=== PATIENT | male | born 1975 | race Caucasian/White ===

== ENCOUNTER 2024-06-30 15:36 | Emergency (ER) | payer OTHER, SELFPAY ==
[2024-06-30 15:45] VITALS: BP 131/89
--- NOTE | 2024-06-30 15:46 | ED.MUSCINJ ---
HPI-Injury
<Gregory Horvath PA-C - Last Filed: 06/30/24 15:47>
General
Chief Complaint: Musculo-Skeletal Complaint
Time Seen by Provider: 06/30/24 19:14
<Cain Murillo PA-C - Last Filed: 07/01/24 03:17>
History of Present Illness-Injury
Initial Injury comments:
48-year-old male presents to the emergency department for evaluation of an injury to the nose, was playing field hockey with his daughter when he was struck in the face by a ball. Arrives with bruising and swelling associated with a minor
laceration to the bridge of the nose. Denies loss of conscious. No current epistaxis.
ED Provider Triage
<Gregory Horvath PA-C - Last Filed: 06/30/24 15:47>
-
Patient seen by provider in Triage?: Seen in Triage
48-year-old male training field hockey with his daughter got hit in the nose with a field hockey ball. He notes swelling and subtle deformity as well as laceration to the bridge of the nose. No headache or loss of consciousness. No prior nasal
injury.
X-rays of nasal bones pending. He has a small laceration to the bridge of the nose
Patient seen by medical provider through triage and may warrant further evaluation
Review of Systems
<Cain Murillo PA-C - Last Filed: 07/01/24 03:17>
Review of Systems
Allergies reviewed?: Yes
All Other Systems: ROS reviewed and negative except as documented in HPI and ROS
Phy Exam
<Cain Murillo PA-C - Last Filed: 07/01/24 03:17>
Physical Exam
Physical Exam:
GEN: Well appearing, NAD, WDWN
HEENT: Oral mucosa moist, no scleral icterus. Moderate bilateral ecchymosis and swelling to the nasal bridge with a subcentimeter curvilinear laceration, partial-thickness
Cardiac: Regular rate
Lung: No respiratory distress, no tachypnea
MSK: No gross deformity or injuries
Skin: Good color, no pallor or jaundice, no rashes
Neuro: AO x3, moves all extremities freely
Psych: Calm, cooperative
Injury Course
<Gregory Horvath PA-C - Last Filed: 06/30/24 15:47>
Orders/Labs/Results
Orders:
Orders
06/30/24 15:46
CR Nasal Bones Comp Min 3 View Urgent
Comment:
Reason For Exam: nasal pain, hit with ball
06/30/24 19:30
Cephalexin Monohydrate [Keflex] 500 mg PO NOW STA
Tetanus/Diphth/Acelpertussis [Adacel] 0.5 ml IM .ONCE ONE
<Cain Murillo PA-C - Last Filed: 07/01/24 03:17>
Orders/Labs/Results
Orders:
Orders
06/30/24 15:46
CR Nasal Bones Comp Min 3 View Urgent
Comment:
Reason For Exam: nasal pain, hit with ball
06/30/24 19:30
Cephalexin Monohydrate [Keflex] 500 mg PO NOW STA
Tetanus/Diphth/Acelpertussis [Adacel] 0.5 ml IM .ONCE ONE
<NABOR Antoine Last Filed: 07/01/24 03:17>
MDM/Problems Addressed
MDM/Problems Addressed:
Small amount of glue applied for hemostasis of the wound. Will treat with antibiotics given that this is an open fracture. No significant displacement or malalignment requiring reduction. Outpatient ENT follow-up advised
<Cain Murillo PA-C - Last Filed: 07/01/24 03:17>
*Critical Care Note
Total Time (30-74mins, 75-104mins- exclusive of procedures): Not Applicable
ED Attending Note
<Gregory Horvath PA-C - Last Filed: 06/30/24 15:47>
-
Portions of this chart may have been created with voice recognition software.� Occasional wrong word or��sound alike� substitutions may have occurred due to the inherent limitations of voice recognition software.
Discharge Plan
Departure
Patient Disposition: Home (Routine Discharge)
Date of Disposition: 06/30/24
Time of Disposition: 19:32
Patient with high blood pressure during this ER visit?: No
Discharge Problem:
Fracture, nasal bone, open
Instructions: Nose Fracture ED
Prescriptions:
New
cephalexin 500 mg capsule
500 mg PO Q8H 5 Days Qty: 15 0RF
Referrals:
Dillon Tanner MD [Family Provider] -
Gaston Yeh MD [Active] -
Interventions
Interventions:
*Risk Screen - Suicide Last Done: 06/30/24 15:45
*General Assessment Last Done: 06/30/24 15:45
*Neglect/Abuse Screening Last Done: 06/30/24 15:45
*ED COVID-19 Vaccine History Last Done: 06/30/24 17:44
*Nursing Disposition Last Done: 06/30/24 20:16
ED-Musculoskeletal Assessment Last Done: 06/30/24 17:44
Discharge Date and Time
Discharge Date/Time: 06/30/24 20:17
Print Language: [email or web address]
[2024-06-30] MEDS: KEFLEX 500 MG PO (19:37)
[2024-06-30] MEDS: ADACEL 0.5 ML IM (19:37)
[2024-06-30 20:16] VITALS: BP 130/80
== END 2024-06-30 20:17 | disposition home or self-care (01) ==
LOC: EMR 15:36
PROVIDERS: EMERGENCY PHYSICIAN Emergency Medicine; FAMILY PHYSICIAN Family Medicine
DX: S02.2XXB Fracture of nasal bones, initial encounter for open fracture (principal); W21.09XA Struck by other hit or thrown ball, initial encounter; Y93.65 Activity, lacrosse and field hockey; Z23 Encounter for immunization
CPT/HCPCS: 99283; 90471; 70160; 90715

== ENCOUNTER 2025-05-29 06:21 | Day surgery (SDC) | payer OTHER, SELFPAY | END 2025-05-29 10:34 | disposition home or self-care (01) | LOC: GI 06:21 | PROVIDERS: ATTENDING PHYSICIAN Internal Medicine Gastroenterology | DX: Z12.11 Encounter for screening for malignant neoplasm of colon (principal); K64.8 Other hemorrhoids | CPT/HCPCS: G0121 ==